=== PATIENT | male | born 1960 | race Two or more races ===

== ENCOUNTER 2016-08-22 22:14 | Observation (INO) | payer BC, OTHER ==
--- NOTE | 2016-08-22 22:18 | PDOC ---
History of Present Illness - General Chief Complaint: Chest Pain Stated Complaint: CHEST PAIN Time Seen by Provider: 08/22/16 22:16 - History of Present Illness Initial Comments: This 56-year-old man with a history of hypertension and hyperlipidemia presents with a history of bilateral anterior chest pain for the last hour. Pain began approximately 2 hours after dinner, after taking a small amount of alcohol. He denies shortness of breath, cough, nausea or diaphoresis. Pain radiated to bilateral upper arms and was steady in quality, 8/10 in severity. Patient took 3 tablets of 81 mg aspirin and came to the ER. Pain did improve to 3/10 prior to evaluation. No recent overuse/trauma. No recent febrile illness or flulike symptoms. Patient has been taking his medications as prescribed. Author Agent: Dr. Hsieh Patient has a history of treadmill stress test in July 2014 which was negative Cardiac risk factors: Positive for hypertension/hyperlipidemia; no smoking/ cardiac family history/DM. Past History - Past Medical History Allergies/Adverse Reactions: Allergies Allergy/AdvReac Type Severity Reaction Status Date / Time No Known Allergies Allergy Verified 08/22/16 22:24 Home Medications: Ambulatory Orders Aspirin [ASA -] 81 mg PO DAILY 08/22/16 Lisinopril/Hydrochlorothiazide [Lisinopril-Hctz 10-12.5 mg Tab] 1 each PO DAILY 08/22/16 Review of Systems - Review of Systems Able to Perform ROS?: Yes Comments:: 12 point review of systems is negative except for what is noted in the history of present illness *Physical Exam - Vital Signs Last Vital Signs Temp Pulse Resp BP Pulse Ox 97.5 F L 65 16 104/74 99 08/22/16 22:28 08/23/16 00:21 08/23/16 00:21 08/23/16 00:21 08/23/16 00:21 - Physical Exam Comments: GENERAL:adult male, alert and oriented 3in no acute distress HEAD: Normal with no signs of trauma. EYES: PERRLA, EOMI, sclera anicteric, conjunctiva clear. ENT: Ears normal, nares patent, oropharynx clear without exudates. Dry mucous membranes. NECK: Normal range of motion, supple without lymphadenopathy, JVD, or masses. LUNGS: Breath sounds equal, clear to auscultation bilaterally. No wheezes, and no crackles. HEART:Regular rate and rhythm, normal S1 and S2 without murmur, rub or gallop. ABDOMEN:.normal bowel sounds No guarding,tenderness or rebound.No masses No distention. EXTREMITIES: Normal range of motion, no edema. No clubbing or cyanosis. No erythema, or tenderness. NEUROLOGICAL: Cranial nerves II through XII grossly intact. Normal speech. No focal neurological deficits. MUSCULOSKELETAL: Back non-tender to palpation, no CVA tenderness SKIN: Warm, Dry, normal turgor, no rashes or lesions noted. 12 lead EKG reveals normal sinus rhythm at 64/minute. Intervals/axis normal. flattening of T waves in V5/V6, otherwise noacute ST orT-wave abnormalities ED Treatment Course - LABORATORY CBC & Chemistry Diagram: 08/22/16 22:20 08/22/16 22:20 - ADDITIONAL ORDERS Additional order review: Laboratory Results 08/22/16 08/22/16 08/22/16 22:20 22:20 22:20 INR 1.07 Sodium Potassium Chloride Carbon Dioxide Anion Gap BUN Creatinine Creat Clearance w eGFR Random Glucose Calcium Total Bilirubin AST ALT Alkaline Phosphatase Creatine Kinase 340 H CK-MB (CK-2) 3.6 CK-MB (CK-2) Rel Index 1.1 Troponin I < 0.03 L Total Protein Albumin Triglycerides 580 H Cholesterol 259 Total LDL Cholesterol 108 HDL Cholesterol 35 08/22/16 22:20 INR Sodium 140 Potassium 3.4 L Chloride 100 Carbon Dioxide 30 H Anion Gap 10 BUN 13 Creatinine 0.9 Creat Clearance w eGFR > 60 Random Glucose 105 Calcium 10.2 Total Bilirubin 0.8 AST 29 ALT 44 H Alkaline Phosphatase 66 Creatine Kinase CK-MB (CK-2) Cancelled CK-MB (CK-2) Rel Index Troponin I Total Protein 7.5 Albumin 4.6 Triglycerides Cholesterol Total LDL Cholesterol HDL Cholesterol 08/22/16 22:20 RBC 5.79 H MCV 79.2 L MCHC 34.1 RDW 11.8 L MPV 8.5 Neutrophils % 47.6 Lymphocytes % 41.7 H Monocytes % 7.2 Eosinophils % 2.4 Basophils % 1.1 - RADIOLOGY Radiology Studies Ordered: Category Date Time Status CHEST X-RAY PORTABLE* [RAD] Stat Radiology 08/22/16 22:17 Taken - Medications Given in the ED: ED Medications Discontinued Medications Generic Name Dose Route Start Last Admin Trade Name Freq PRN Reason Stop Dose Admin Nitroglycerin 0.4 mg 08/22/16 22:47 08/22/16 22:53 Nitrostat - SL 08/22/16 22:48 0.4 mg ONCE ONE Administration Potassium Chloride 20 meq 08/23/16 00:13 08/23/16 00:17 K-Dur - PO 08/23/16 00:14 20 meq ONCE ONE Administration Progress Note - Progress Note Progress Note: Patient reports complete resolution of pain. Patient had been given nitroglycerin 0.4 mg sublingually and 2 L of oxygen ( nasal cannula) had been administered prior to resolution of the pain. Portable chest x-ray shows no evidence of acute pathology Laboratory evaluation shows no elevation of troponin; total CK is slightly elevated. Other than mild hypokalemia (3.4 mEq per deciliter), no significant abnormality found and the remainder of the laboratory evaluation. Medical Decision Making - Medical Decision Making 08/22/16 23:47 case discussed with patient's painter mirror, who prefers admission of patient to telemetry at [facility] for stress testing tomorrow. 08/23/16 00:[address] [facility] to their service: Observation bed at telemetry floor, [facility]. Patient continues to be comfortable without development of new complaints. Patient transferred to Telemetry floor, [facility] via ALS ambulance in stable condition *DC/Admit/Observation/Transfer Diagnosis at time of Disposition: Chest pain - Discharge Dispostion Condition at time of disposition: Stable Admit: Yes
[2016-08-22 22:36] LABS: BASOPHIL 1.1 % (0-2.0); EOSINOPHIL 2.4 % (0-4.5); MCHC 34.1 g/dl (32.0-35.9); MEAN CELL VOLUME 79.2 fl (80-96); MEAN PLT VOLUME 8.5 fl (7.5-11.1); NEUTROPHILS 47.6 % (42.8-82.8); PLATELET COUNT 220 K/MM3 (134-434); RDW 11.8 % (11.9-15.9); WHITE BLOOD COUNT 6.7 K/mm3 (4.0-10.0)
[2016-08-22 22:40] VITALS: BMI 25.9
[2016-08-22 22:44] LABS: INR 1.07 (0.82-1.09)
[2016-08-22] MEDS ORDERED: NITROGLYCERIN SUBLINGUAL 1/150 0.4 MG TAB SL ONE (22:47)
[2016-08-22 22:49] LABS: ALBUMIN 4.6 g/dl (3.5-5.0); ALK PHOS 66 U/L (32-92); ANION GAP 10 (8-16); BILIRUBIN,TOTAL 0.8 mg/dl (0.2-1.0); CALCIUM 10.2 mg/dl (8.4-10.2); CO2 30 mmol/L (22-28); CPK(DFH) 340 IU/L (38-174); CREATININE 0.9 mg/dl (0.6-1.3); GLUCOSE,RANDOM 105 mg/dl (74-106); SGOT/AST 29 U/L (10-42); SGPT/ALT 44 U/L (10-40); TOT PROT 7.5 g/dl (6.4-8.3)
[2016-08-22] MEDS ORDERED: NITROGLYCERIN SUBLINGUAL 1/150 0.4 MG TAB ONE (22:51)
[2016-08-22 22:57] LABS: TROPONIN I (DFP) < 0.03 ng/ml (0.03-0.50)
--- NOTE | 2016-08-22 23:27 | CON.CARD ---
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 The discomfort was felt diffusely across the chest and into both shoulders, but not the back or jaw. He took a couple of aspirisns,and the pain lasted for about an hour. He has never had this before. He was seen in our office 05/2016; his BP was elevated, as it had been when he was last seen (07/2015), and HCTZ was added to the lisinopril he was already taking. Stress treadmill test 07/2014: no myocardial ischemia or arrhythmias; good exercise capacity (walked 10 minutes using Rodriguez protocol; 99% MPHR reached); asymptomatic throughout the examination. EKG 05/2016: normal sinus rhythm; normal study. - History Source History Provided By: Patient, Medical Record Limitations to Obtaining History: No Limitations - Past Medical History Cardio/Vascular: Yes: HTN Gastrointestinal: Yes: GERD - Alcohol/Substance Use Hx Alcohol Use: Yes - Smoking History Smoking history: Former smoker Have you smoked in the past 12 months: No - Social History Usual Living Arrangement: With Spouse Home Medications - Allergies Allergies/Adverse Reactions: Allergies Allergy/AdvReac Type Severity Reaction Status Date / Time No Known Allergies Allergy Verified 08/22/16 22:24 - Home Medications Home Medications: Ambulatory Orders Aspirin [ASA -] 81 mg PO DAILY 08/22/16 Lisinopril/Hydrochlorothiazide [Lisinopril-Hctz 10-12.5 mg Tab] 1 each PO DAILY 08/22/16 Family Disease History - Family Disease History Family History: Denies Review of Systems - Review of Systems Constitutional: reports: No Symptoms Eyes: reports: No Symptoms HENT: reports: No Symptoms Neck: reports: No Symptoms Cardiovascular: reports: Chest Pain Respiratory: reports: No Symptoms Gastrointestinal: reports: No Symptoms Genitourinary: reports: No Symptoms Breasts: reports: No Symptoms Reported Musculoskeletal: reports: No Symptoms Integumentary: reports: No Symptoms Neurological: reports: No Symptoms Endocrine: reports: No Symptoms Hematology/Lymphatic: reports: No Symptoms Psychiatric: reports: No Symptoms - Risk Factors Known Risk Factors: Yes: Age, Gender, Hypercholesterolemia, Hypertension, Physical Inactivity, Smoking (former) Vital Signs: Vital Signs Temperature 97.5 F L 08/22/16 22:28 Pulse Rate 64 08/22/16 22:54 Respiratory Rate 16 08/22/16 22:54 Blood Pressure 131/91 08/22/16 22:54 O2 Sat by Pulse Oximetry (%) 100 08/22/16 22:54 Constitutional: Yes: No Distress Eyes: Yes: WNL HENT: Yes: WNL Neck: Yes: WNL Gastrointestinal: Yes: WNL Renal/: Yes: WNL Cardiovascular: Yes: WNL JVD: No Carotid Bruit: No PMI: Non-Displaced Heart Sounds: Yes: S1, S2, S4 Murmur: Yes: Systolic Murmur, Grade 1 Musculoskeletal: Yes: WNL Extremities: Yes: WNL Edema: No Peripheral Pulses WNL: Yes Integumentary: Yes: WNL Neurological: Yes: WNL ...Motor Strength: WNL Psychiatric: Yes: WNL - Other Data Labs, Other Data: CBC, BMP 08/22/16 22:20 08/22/16 22:20 INR, PTT INR 1.07 (0.82-1.09) 08/22/16 22:20 Troponin, BNP 08/22/16 22:20 Troponin I < 0.03 L Troponin, BNP 08/22/16 22:20 Troponin I < 0.03 L Imaging - Results EKG: Report Reviewed (NSR; no acute ST-T changes) Problem List - Problems (1) Chest pain, precordial Assessment/Plan: Chest pain no longer present. 1st TNI <0.03; f/u serially. 1st EKG: NSR; no acute ST-T changes. Serial EKGs; transfer to telemetry. BP initially 143/101 mmHg; now 129/81 mmHg after HCTZ and lisinopril. ASA 325 mg x one, then 81 mg daily. Clopidogrel 75 mg PO x one, then daily. F/u lipids/ start statin. TSH. ECHO for LVEF, wall motion, valve status. Pt for stress treadmill MIBI in am if there are no significant changes in subsequent TNI and EKGs. Code(s): R07.2 - PRECORDIAL PAIN (2) GERD (gastroesophageal reflux disease) Code(s): K21.9 - GASTRO-ESOPHAGEAL REFLUX DISEASE WITHOUT ESOPHAGITIS (3) HTN (hypertension) Assessment/Plan: Continue HCTZ and lisinopril. Code(s): I10 - ESSENTIAL (PRIMARY) HYPERTENSION (4) Hyperlipidemia Code(s): E78.5 - HYPERLIPIDEMIA, UNSPECIFIED (5) Hypokalemia Assessment/Plan: on diuretic. Replete K; f/u Mg. Code(s): E87.6 - HYPOKALEMIA
[2016-08-22 23:30] LABS: CK MB 3.6 ng/ml (0.3-4.0)
[2016-08-22 23:54] LABS: CHOLESTEROL 259 mg/dl
[2016-08-23] MEDS ORDERED: POTASSIUM CHLORIDE TABS 20 MEQ TABLET.ER (FP) PO ONE ×2 (00:13)
[2016-08-23 01:40] VITALS: TEMP 98.2
--- NOTE | 2016-08-23 01:51 | HP ---
CHIEF COMPLAINT: Chest Pain PCP: [facility]: HISTORY OF PRESENT ILLNESS: This is a very pleasant 56 y/o man with a past medical history of Hypertension, Hyperlipidemia, GERD. Who presents to the emergency department with chest pain x started last pm. Patient reports after eating dinner at 9pm, he began having sharp pains across his chest radiating to his arms. Patient denies diaphoresis, SOB, N/V, belching. Patient denies fever, chills, cough, AP, diarrhea, constipation or dysuria. Patient denies heavy lifting or extreme exercises or sports. Patient denies familial hx of Cardiac Disease. ER course was notable for: (1) EKG-NSR @ 64bpm, flattening T waves V5/V6, no acute ST or T wave abnormality (2) Cardiac Enzymes- CK 340, Trop I < 0.03 (3) Triglycerides 580, Cholesterol 259 Recent Travel: None PAST MEDICAL HISTORY: See HPI PAST SURGICAL HISTORY: None Social History: Smoking: Former 20 years ago Alcohol: Socially Drugs: None Family History: Non-Contributory Allergies No Known Allergies Allergy (Verified 08/22/16 22:24) HOME MEDICATIONS: Home Medications Medication Instructions Recorded Aspirin [ASA -] 81 mg PO DAILY 08/22/16 Lisinopril/Hydrochlorothiazide 1 each PO DAILY 08/22/16 [Lisinopril-Hctz 10-12.5 mg Tab] REVIEW OF SYSTEMS CONSTITUTIONAL: Absent: fever, chills, diaphoresis, generalized weakness, malaise, loss of appetite, weight change HEENT: Absent: rhinorrhea, nasal congestion, throat pain, throat swelling, difficulty swallowing, mouth swelling, ear pain, eye pain, visual changes CARDIOVASCULAR: chest pain Absent: syncope, palpitations, irregular heart rate, lightheadedness, peripheral edema RESPIRATORY: Absent: cough, shortness of breath, dyspnea with exertion, orthopnea, wheezing, stridor, hemoptysis GASTROINTESTINAL: Absent: abdominal pain, abdominal distension, nausea, vomiting, diarrhea, constipation, melena, hematochezia GENITOURINARY: Absent: dysuria, frequency, urgency, hesitancy, hematuria, flank pain, genital pain MUSCULOSKELETAL: Absent: myalgia, arthralgia, joint swelling, back pain, neck pain SKIN: Absent: rash, itching, pallor HEMATOLOGIC/IMMUNOLOGIC: Absent: easy bleeding, easy bruising, lymphadenopathy, frequent infections ENDOCRINE: Absent: unexplained weight gain, unexplained weight loss, heat intolerance, cold intolerance NEUROLOGIC: Absent: headache, focal weakness or paresthesias, dizziness, unsteady gait, seizure, mental status changes, bladder or bowel incontinence PSYCHIATRIC: Absent: anxiety, depression, suicidal or homicidal ideation, hallucinations. PHYSICAL EXAMINATION GENERAL: Awake, alert, and fully oriented, in no acute distress. HEAD: Normal with no signs of trauma. EYES: Pupils equal, round and reactive to light, extraocular movements intact, sclera anicteric, conjunctiva clear. No lid lag. EARS, NOSE, THROAT: Ears normal, nares patent, oropharynx clear without exudates. Moist mucous membranes. NECK: Normal range of motion, supple without lymphadenopathy, JVD, or masses. LUNGS: Breath sounds equal, clear to auscultation bilaterally. No wheezes, and no crackles. No accessory muscle use. HEART: Regular rate and rhythm, normal S1 and S2 without murmur, rub or gallop. Non-reproducible CP ABDOMEN: Soft, nontender, not distended, normoactive bowel sounds, no guarding, no rebound, no masses. No hepatomegaly or splenomegaly. MUSCULOSKELETAL: Normal range of motion at all joints. No bony deformities or tenderness. No CVA tenderness. UPPER EXTREMITIES: 2+ pulses, warm, well-perfused. No cyanosis. No clubbing. Cap refill <2 seconds. No peripheral edema. LOWER EXTREMITIES: 2+ pulses, warm, well-perfused. No calf tenderness. No peripheral edema. NEUROLOGICAL: Cranial nerves II-XII intact. Normal speech. Normal gait. PSYCHIATRIC: Cooperative. Good eye contact. Appropriate mood and affect. SKIN: Warm, dry, normal turgor, no rashes or lesions noted. Laboratory Results - last 24 hr 08/22/16 08/22/16 08/22/16 22:20 22:20 22:20 WBC 6.7 RBC 5.79 H Hgb 15.6 Hct 45.8 MCV 79.2 L MCHC 34.1 RDW 11.8 L Plt Count 220 MPV 8.5 Neutrophils % 47.6 Lymphocytes % 41.7 H Monocytes % 7.2 Eosinophils % 2.4 Basophils % 1.1 INR Sodium 140 Potassium 3.4 L Chloride 100 Carbon Dioxide 30 H Anion Gap 10 BUN 13 Creatinine 0.9 Creat Clearance w eGFR > 60 Random Glucose 105 Calcium 10.2 Total Bilirubin 0.8 AST 29 ALT 44 H Alkaline Phosphatase 66 Creatine Kinase 340 H CK-MB (CK-2) Cancelled 3.6 CK-MB (CK-2) Rel Index 1.1 Troponin I < 0.03 L Total Protein 7.5 Albumin 4.6 Triglycerides Cholesterol Total LDL Cholesterol HDL Cholesterol 08/22/16 08/22/16 22:20 22:20 WBC RBC Hgb Hct MCV MCHC RDW Plt Count MPV Neutrophils % Lymphocytes % Monocytes % Eosinophils % Basophils % INR 1.07 Sodium Potassium Chloride Carbon Dioxide Anion Gap BUN Creatinine Creat Clearance w eGFR Random Glucose Calcium Total Bilirubin AST ALT Alkaline Phosphatase Creatine Kinase CK-MB (CK-2) CK-MB (CK-2) Rel Index Troponin I Total Protein Albumin Triglycerides 580 H Cholesterol 259 Total LDL Cholesterol 108 HDL Cholesterol 35 ASSESSMENT/PLAN: This is a 56 y/o man with a PMHx of HTN, HLD, GERD. Who presents to the ED with sharp chest pain radiating to his arms. Placed on Tele Observation for Chest Pain r/o ACS for further evaluation of their emergent condition. Plan: 1. Chest Pain r/o ACS - Tele monitoring - HEART Score 6 - BRIDGETTE Score 2 - Cardiology following - NTG sl given in ED- with relief - KCL given in ED for hypokalemia - Patient reports taking 243 in Asa at home - Plavix given now, will continue -Continue Asa - Start Lipitor tonight - NTG sl prn Chest Pain - Cardiac Enzymes CK elevated, Trop I- wnl - Serial Enzymes x2 - TSH - Echo in am - Scheduled for Stress Test MIBI 2. HLD - Elevated TG, Chol - Will start on Lipitor - Consider RD consult - Monitor LFTs 3. Hypokalemia - Repleted with KCL in ED - Monitor BMP 4. HTN - Monitor BP - Continue home meds - Monitor renal function 5. GERD - Stable - PPI 6. F/E/N - Monitor lytes- K repleted - NPO advances Ad Bonnie 7. DVT Prophylaxis - OOB - SCDs - Consider ACs if LOS> 48 hrs Code Status: Full Code Problem List - Problem (1) Chest pain, precordial Code(s): R07.2 - PRECORDIAL PAIN (2) Hypokalemia Code(s): E87.6 - HYPOKALEMIA (3) Hyperlipidemia Code(s): E78.5 - HYPERLIPIDEMIA, UNSPECIFIED (4) HTN (hypertension) Code(s): I10 - ESSENTIAL (PRIMARY) HYPERTENSION (5) GERD (gastroesophageal reflux disease) Code(s): K21.9 - GASTRO-ESOPHAGEAL REFLUX DISEASE WITHOUT ESOPHAGITIS (6) DVT prophylaxis Code(s): [id number] - Visit type - Emergency Visit Emergency Visit: Yes ED Registration Date: 08/23/16 Care time: The patient presented to the Emergency Department on the above date and was hospitalized for further evaluation of their emergent condition. - New Patient This patient is new to me today: Yes Date on this admission: 08/23/16 - Critical Care Critical Care patient: No
[2016-08-23] MEDS ORDERED: CLOPIDOGREL BISULFATE 75 MG TABLET (FP) PO ONE (01:52)
[2016-08-23] MEDS ORDERED: CLOPIDOGREL BISULFATE 75 MG TABLET (FP) ONE (01:57)
[2016-08-23 05:07] LABS: BASOPHIL 0.9 % (0-2.0); EOSINOPHIL 3.6 % (0-4.5); MCH 27.1 pg (25.7-33.7); MEAN CELL VOLUME 79.8 fl (80-96); MEAN PLT VOLUME 9.1 fl (7.5-11.1); NEUTROPHILS 39.2 % (42.8-82.8); PLATELET COUNT 190 K/MM3 (134-434); RDW 12.8 % (11.9-15.9); WHITE BLOOD COUNT 6.6 K/mm3 (4.0-10.0)
[2016-08-23 05:26] LABS: CALCIUM 9.1 mg/dL (8.5-10.1); CREATININE 0.9 mg/dL (0.7-1.3)
[2016-08-23 05:32] LABS: TROPONIN I < 0.02 ng/ml (0.00-0.05)
[2016-08-23 05:38] LABS: PHOSPHOROUS 3.1 mg/dL (2.5-4.9)
--- NOTE | 2016-08-23 09:48 | PN ---
Progress Note, Physician Chief Complaint: Pt A&Ox3; no further chest pain. 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 Ht pain was felt diffusely across the chest and involved both shoulders; it went away within an hour after taking two baby ASAs. He has not had this occur before. He was seen in our office 05/2016; his BP was elevated, as it had been when he was last seen (07/2015), and HCTZ was added to the lisinopril he was already taking. Stress treadmill test 07/2014: no myocardial ischemia or arrhythmias; good exercise capacity (walked 10 minutes using Rodriguez protocol; 99% MPHR reached); asymptomatic throughout the examination. EKG 05/2016: normal sinus rhythm; normal study. - Current Medication List Current Medications: Active Medications Aspirin (Asa -) 81 mg PO DAILY MARISEL Atorvastatin Calcium (Lipitor -) 10 mg PO HS MARISEL Clopidogrel Bisulfate (Plavix -) 75 mg PO DAILY MARISEL Gemfibrozil (Lopid -) 600 mg PO BID@0730,1630 MARISEL Hydrochlorothiazide (Hctz -) 12.5 mg PO DAILY MARISEL Lisinopril (Prinivil) 10 mg PO DAILY MARISEL - Objective Vital Signs: Vital Signs Temperature 98.2 F 08/23/16 06:00 Pulse Rate 70 08/23/16 06:00 Respiratory Rate 18 08/23/16 06:00 Blood Pressure 108/78 08/23/16 06:00 O2 Sat by Pulse Oximetry (%) 95 08/23/16 01:00 Constitutional: Yes: No Distress Eyes: Yes: WNL HENT: Yes: WNL Neck: Yes: WNL Cardiovascular: Yes: Regular Rate and Rhythm Respiratory: Yes: Regular Gastrointestinal: Yes: Soft ...Rectal Exam: Yes: Deferred Genitourinary: No: Anuria Breast(s): Yes: WNL Musculoskeletal: Yes: WNL Extremities: Yes: WNL Edema: No Peripheral Pulses WNL: Yes Integumentary: Yes: WNL Wound/Incision: Yes: Clean/Dry Neurological: Yes: WNL ...Motor Strength: WNL Psychiatric: Yes: WNL Labs: CBC, BMP 08/23/16 04:30 08/23/16 04:30 INR, PTT INR 1.07 (0.82-1.09) 08/22/16 22:20 Problem List - Problems (1) Chest pain, precordial Assessment/Plan: Chest pain no longer present. 1st TNI <0.03; f/u serially. 1st EKG: NSR; no acute ST-T changes. Serial EKGs; transfer to telemetry. BP initially 143/101 mmHg; now 129/81 mmHg after HCTZ and lisinopril. ASA 325 mg x one, then 81 mg daily. Clopidogrel 75 mg PO x one, then daily. F/u lipids/ start statin. TSH. ECHO for LVEF, wall motion, valve status. Pt for stress treadmill MIBI in am if there are no significant changes in subsequent TNI and EKGs. Code(s): R07.2 - PRECORDIAL PAIN (2) GERD (gastroesophageal reflux disease) Code(s): K21.9 - GASTRO-ESOPHAGEAL REFLUX DISEASE WITHOUT ESOPHAGITIS (3) HTN (hypertension) Code(s): I10 - ESSENTIAL (PRIMARY) HYPERTENSION (4) Hyperlipidemia Code(s): E78.5 - HYPERLIPIDEMIA, UNSPECIFIED
[2016-08-23] MEDS ORDERED: ASPIRIN 81 MG CHEWABLE TABLETS PO SCH (10:00)
[2016-08-23] MEDS ORDERED: HYDROCHLOROTHIAZIDE 12.5 MG CAPSULE (FP) PO SCH (10:00)
[2016-08-23] MEDS ORDERED: LISINOPRIL 10 MG TABLET (FP) PO SCH (10:00)
[2016-08-23] MEDS ORDERED: PATIENT'S OWN MEDICATION (NON-FORMULARY) (Lisinopril/Hydrochlorothiazide [Lisinopril-Hctz PO SCH (10:00)
--- NOTE | 2016-08-23 13:01 | DS ---
[id number] Rate 18 08/23/16 06:00 Blood Pressure 108/78 08/23/16 06:00 O2 Sat by Pulse Oximetry (%) 95 08/23/16 01:00 Findings/Remarks: General: NAD, A&Ox3 Lungs: CTA bilaterally Heart: RRR, S1S2 Abd: Soft, non-tender, non-distended. Normoactive bowel sounds Ext: Warm, well-perfused. 2+ DP/PT bilaterally Neuro: CN 2-12 intact Labs: CBC, BMP 08/23/16 04:30 08/23/16 04:30 Discharge Summary Reason For Visit: CHEST PAIN Current Active Problems Chest pain, precordial (Acute) DVT prophylaxis (Acute) GERD (gastroesophageal reflux disease) (Acute) HTN (hypertension) (Acute) Hyperlipidemia (Acute) Hypokalemia (Acute) Hospital Course: This is a 56 year old male with PMHx of HTN, hyperlipidemia, GERD who presented to the ED with chest pain that started the night before he came to the ED. The patient reported the chest pain to be sharp, radiating across his chest to his arms. (1) EKG-NSR @ 64bpm, flattening T waves V5/V6, no acute ST or T wave abnormality (2) Cardiac Enzymes trop x3 negative (3) Triglycerides 580, Cholesterol 259 The patient was started on Lipitor and Lopid. Discussed with Dr. Hsieh who states ECHO and stress reviewed and the patient may be discharged with follow-up in the office in 1 week. The patient does not need to be discharged on Plavix. Rx for Lopid sent to pharmacy Instructed the patient to follow-up with his pcp and hooker on within 1 week. Please return to the ED with new, persistent, or worsening symptoms. Condition: Improved - Instructions Diet, Activity, Other Instructions: Please return to the ED with new, persistent, or worsening symptoms. Please follow-up with providers as indicated. Referrals: Hans Hsieh MD [Staff Physician] - (Please follow-up with your hooker on within 1 week. ) Maria Dolores Starkey MD [Staff Physician] - (Please follow-up with your primary care provider within 1 week. ) Disposition: HOME - Home Medications Comprehensive Discharge Medication List: Ambulatory Orders Aspirin [ASA -] 81 mg PO DAILY 08/22/16 Lisinopril/Hydrochlorothiazide [Lisinopril-Hctz 10-12.5 mg Tab] 1 each PO DAILY 08/22/16 Atorvastatin Ca [Lipitor] 10 mg PO HS #30 tablet 08/23/16 Gemfibrozil [Lopid -] 600 mg PO BID@0730,1630 #60 tablet 08/23/16 This patient is new to me today: Yes Date on this admission: 08/23/16 Emergency Visit: Yes ED Registration Date: 08/23/16 Care time: The patient presented to the Emergency Department on the above date and was hospitalized for further evaluation of their emergent condition. Critical Care patient: No - Discharge Referral Referred to [facility] No
[2016-08-23 13:09] LABS: TROPONIN I < 0.02 ng/ml (0.00-0.05)
--- NOTE | 2016-08-23 13:37 | EKG ---
Test Reason : Blood Pressure : / mmHG Vent. Rate : 073 BPM Atrial Rate : 073 BPM P-R Int : 122 ms QRS Dur : 086 ms QT Int : 402 ms P-R-T Axes : 033 038 052 degrees QTc Int : 442 ms NORMAL SINUS RHYTHM NONSPECIFIC T WAVE ABNORMALITY ABNORMAL ECG WHEN COMPARED WITH ECG OF 23-AUG-2016 05:21, NO SIGNIFICANT CHANGE WAS FOUND Confirmed by GAURI JENKINS MD ([id number]) on 08/23/2016 1:36:39 PM Referred By: Keri JANG Confirmed By:GAURI JENKINS MD
--- NOTE | 2016-08-23 13:43 | EKG ---
Test Reason : Blood Pressure : / mmHG Vent. Rate : 064 BPM Atrial Rate : 064 BPM P-R Int : 132 ms QRS Dur : 090 ms QT Int : 412 ms P-R-T Axes : 053 027 060 degrees QTc Int : 425 ms NORMAL SINUS RHYTHM NONSPECIFIC T WAVE ABNORMALITY ABNORMAL ECG NO PREVIOUS ECGS AVAILABLE Confirmed by JESSI CLEMENTS MD ([id number]) on 08/23/2016 1:42:35 PM Referred By: DR CUNNINGHAM Confirmed By:JESSI CLEMENTS MD
--- NOTE | 2016-08-23 13:49 | EKG ---
Test Reason : Blood Pressure : / mmHG Vent. Rate : 073 BPM Atrial Rate : 073 BPM P-R Int : 126 ms QRS Dur : 086 ms QT Int : 412 ms P-R-T Axes : 039 025 049 degrees QTc Int : 453 ms NORMAL SINUS RHYTHM NONSPECIFIC T WAVE ABNORMALITY ABNORMAL ECG WHEN COMPARED WITH ECG OF 22-AUG-2016 22:23, NO SIGNIFICANT CHANGE WAS FOUND Confirmed by GAURI JENKINS MD ([id number]) on 08/23/2016 1:49:35 PM Referred By: Confirmed By:GAURI JENKINS MD
[2016-08-23 14:13] VITALS: BP 127/81; PULSE 66
[2016-08-23] MEDS ORDERED: GEMFIBROZIL 600 MG TABLET (FP) PO SCH ×2 (16:30)
[2016-08-23] MEDS ORDERED: ATORVASTATIN CA 10 MG TABLET (FP) PO SCH (22:00)
[2016-08-24] MEDS ORDERED: CLOPIDOGREL BISULFATE 75 MG TABLET (FP) PO SCH (10:00)
== END 2016-08-23 13:12 | disposition home or self-care (01) ==
LOC: FER 22:14 → INTOOBSV 08-23 01:00 → UNDOADMOB 08-23 01:00 → J4S 08-23 01:00
PROVIDERS: ADMIT Internal Medicine; ATTEND Registered Nurse
DX: R07.2 Precordial pain (principal); I10 Essential (primary) hypertension; K21.9 Gastro-esophageal reflux disease without esophagitis; E87.6 Hypokalemia; E78.5 Hyperlipidemia, unspecified; Z87.891 Personal history of nicotine dependence
CPT/HCPCS: 36415; 71010-TC; 78452-TC; 80048; 80053; 80061; 82550; 82553; 83036; 83735; 84100; 84443; 84478; 84484; 85025; 85610; 93005; 93010; 93017; 93306-TC; 99283-25; A9502; G0378

== ENCOUNTER 2017-04-13 14:49 | Emergency (ER) | payer OTHER ==
--- NOTE | 2017-04-13 14:57 | PDOC ---
History of Present Illness - General History Source: Patient Exam Limitations: No Limitations - History of Present Illness Initial Comments: 04/13/17 15:17 The patient is a 57 year old male, with a significant past medical history of HTN who presents to the emergency department with s/p fall today. Patient tripped, fell and landed on his face while walking. Upon evaluation, patients face is active bleeding with laceration above R eye. Patient denies any headache , LOC, nausea or vomiting. Patient denies any weakness, numbness or tingling. PCP: Meño <Kelsi Diana - Last Filed: 04/13/17 15:57> <Carolina Morgan - Last Filed: 04/13/17 17:25> - General Chief Complaint: Nasal Bleeding Stated Complaint: NASAL BLEED Time Seen by Provider: 04/13/17 14:57 Past History <Kelsi Diana - Last Filed: 04/13/17 15:57> - Past Medical History HTN: Yes - Suicide/Smoking/Psychosocial Hx Smoking History: Former smoker Have you smoked in the past 12 months: No Number of Cigarettes Smoked Daily: 20 If you are a former smoker, when did you quit?: 1996 Hx Alcohol Use: Yes Drug/Substance Use Hx: No Substance Use Type: None Hx Substance Use Treatment: No <Carolina Morgan - Last Filed: 04/13/17 17:25> - Past Medical History Allergies/Adverse Reactions: Allergies Allergy/AdvReac Type Severity Reaction Status Date / Time No Known Allergies Allergy Verified 04/13/17 14:55 Home Medications: Ambulatory Orders Aspirin [ASA -] 81 mg PO DAILY 08/22/16 Lisinopril/Hydrochlorothiazide [Lisinopril-Hctz 10-12.5 mg Tab] 1 each PO DAILY 08/22/16 Atorvastatin Ca [Lipitor] 10 mg PO HS #30 tablet 08/23/16 Gemfibrozil [Lopid -] 600 mg PO BID@0730,1630 #60 tablet 08/23/16 *Physical Exam - Vital Signs Last Vital Signs Temp Pulse Resp BP Pulse Ox 98.6 F 88 20 139/105 98 04/13/17 14:55 04/13/17 14:55 04/13/17 14:55 04/13/17 14:55 04/13/17 14:55 <Kelsi Diana - Last Filed: 04/13/17 15:57> Medical Decision Making - Medical Decision Making 04/13/17 15:42 Dr. Christina (plastic) special education educational assistant paged. Awaiting call back. 04/13/17 15:57 Dr. Christina returned the page and the patients case was discussed. <Kelsi Diana - Last Filed: 04/13/17 15:57> - Medical Decision Making 04/13/17 17:19 pt presents to the ED complaining of multiple facial abrasions. There is a small laceration under the nose, but I am unable to suture it in the ED--there is not enough tissue. I will discharge the patient home with plastics follow up. <Daisy Morganm - Last Filed: 04/13/17 17:25> *DC/Admit/Observation/Transfer <Kelsi Diana - Last Filed: 04/13/17 15:57> - Discharge Dispostion Admit: No <EddieCarolina - Last Filed: 04/13/17 17:25> Diagnosis at time of Disposition: Abrasion - Discharge Dispostion Disposition: HOME - Referrals Referrals: Jack Michael MD [Primary Care Provider] - Jeff Christina MD [Staff Physician] - - Patient Instructions Printed Discharge Instructions: DI for Abrasion Additional Instructions: replace steri strips if they fall off in the next two days. Follow up with Dr. Dickinson--call for an appointment on Sunday. Return to the Ed for fever, passing out, new or changing symptoms.
[2017-04-13 14:58] VITALS: TEMP 98.6; BMI 25.9
[2017-04-13] MEDS ORDERED: BACITRACIN 0.9 GM PACKET TP ONE (15:12)
[2017-04-13] MEDS ORDERED: TETANUS AND DIPHTHERIA TOXOID 0.5 ML DISP.SYRIN IM ONE (15:15)
[2017-04-13] MEDS ORDERED: BACITRACIN 0.9 GM PACKET ONE (15:17)
[2017-04-13] MEDS ORDERED: BACITRACIN 15 GM TUBE TOPICAL OINTMENT ONE (15:19)
[2017-04-13] MEDS ORDERED: LIDOCAINE 1%/EPI 1:100000 (20 ML MULTI DOSE VIAL) INF ONE (16:02)
[2017-04-13] MEDS ORDERED: LIDOCAINE 1%/EPI 1:100000 (20 ML MULTI DOSE VIAL) ONE (16:35)
[2017-04-13 18:02] VITALS: BP 128/95; PULSE 79
== END 2017-04-13 18:03 | disposition home or self-care (01) ==
LOC: JER 14:49
DX: S01.81XA Laceration without foreign body of other part of head, initial encounter (principal); W01.0XXA Fall on same level from slipping, tripping and stumbling without subsequent striking against object, initial encounter; Y93.01 Activity, walking, marching and hiking; Y92.89 Other specified places as the place of occurrence of the external cause; Y99.8 Other external cause status; I10 Essential (primary) hypertension
CPT/HCPCS: 99283-25

== ENCOUNTER 2021-12-18 16:59 | Emergency (ER) | payer OTHER ==
[2021-12-18 17:06] VITALS: BMI 25.6
[2021-12-18] MEDS ORDERED: BEBTELOVIMAB (EUA) 175 MG/2 ML VIAL IVPUSH STA (19:09)
[2021-12-18 20:29] VITALS: BP 151/89; PULSE 85; TEMP 99.2
== END 2021-12-18 21:12 | disposition home or self-care (01) ==
LOC: JER 16:59
DX: U07.1 COVID-19 (principal)
CPT/HCPCS: 93005; 93010; 99284-25; Q0222